=== PATIENT | male | born 1985 | race Caucasian/White ===

== ENCOUNTER 2017-10-31 10:45 | Inpatient (IN) | payer OTHER ==
[~2017-10-31] VITALS: Ht 177.8 cm; Wt 90.6 kg
[2017-10-31 12:30] LABS: Calcium, Ionized (POC) 1.17 mmol/L (1.10-1.46); Chloride (POC) 98 mmol/L (98-108); Creatinine (POC) 0.9 mg/dL (0.8-1.3); Glucose (ISTAT POC) 99 mg/dL (70-99); Hemoglobin (POC) 12.6 g/dL (13.5-17.5); Potassium (POC) 4.1 mmol/L (3.5-5.5); Sodium (POC) 137 mmol/L (135-148); Total CO2 (POC) 27 mmol/L (21-32)
[2017-10-31] MEDS ORDERED: IBUP800 PO (16:02)
[2017-10-31] MEDS ORDERED: ACET500 PO (16:03)
[2017-11-01 04:54] LABS: BASOPHILS ABSOLUTE AUTO 0.02 K/mm3 (0.00-0.23); BASOPHILS PERCENT AUTO 0 % (0-2); EOSINOPHILS ABSOLUTE AUTO 0.13 K/mm3 (0.00-0.68); EOSINOPHILS PERCENT AUTO 1 % (0-6); Hematocrit 37.4 % (37.0-53.0); Hemoglobin 12.6 g/dL (13.5-17.5); IMMATURE GRAN ABSOLUTE AUTO 0.04 K/mm3 (0.00-0.10); IMMATURE GRAN PERCENT AUTO 0 % (0-1); LYMPHOCYTES ABSOLUTE AUTO 2.08 K/mm3 (0.84-5.20); LYMPHOCYTES PERCENT AUTO 22 % (21-46); MONOCYTES PERCENT AUTO 8 % (4-13); Mean Corpuscular HGB 30.1 pg (26.0-34.0); Mean Corpuscular HGB Conc 33.7 g/dL (31.5-36.5); Mean Corpuscular Volume 89 fL (80-100); Mean Platelet Volume 8.6 fL (9.1-12.4); NEUTROPHILS ABSOLUTE AUTO 6.57 K/mm3 (1.96-9.15); NEUTROPHILS PERCENT AUTO 68 % (41-73); Platelet Count 191 K/mm3 (150-400); RDW Coefficient Variation 12.8 % (11.7-14.2); RDW Standard Deviation 41.4 fL (35.1-46.3); Red Blood Cell Count 4.19 M/mm3 (4.30-5.90); White Blood Cell Count 9.64 K/mm3 (4.00-11.30)
[2017-11-03] MEDS ORDERED: DOCU100 PO (10:34)
[2017-11-03] MEDS ORDERED: Percocet 10-321 EACH PO (10:35)
== END 2017-11-03 14:17 | disposition home health service (06) | DRG 536 ==
LOC: ER 10:45 → SURS 10:46 → ER 15:06 → SURS 15:06
PROVIDERS: Emergency Medicine; Orthopaedic Surgery
PROC: 3E0234Z Introduction of Serum, Toxoid and Vaccine into Muscle, Percutaneous Approach (ICD-10-PCS; principal; 2017-10-31)
DX: S32.592A Other specified fracture of left pubis, initial encounter for closed fracture (principal); S32.10XA Unspecified fracture of sacrum, initial encounter for closed fracture; M40.209 Unspecified kyphosis, site unspecified; D64.9 Anemia, unspecified; S52.122A Displaced fracture of head of left radius, initial encounter for closed fracture; G89.29 Other chronic pain; M54.5 Low back pain; R03.0 Elevated blood-pressure reading, without diagnosis of hypertension; S32.591A Other specified fracture of right pubis, initial encounter for closed fracture; Z23 Encounter for immunization; W13.2XXA Fall from, out of or through roof, initial encounter
CPT/HCPCS: 36415; 72100; 72193; 73080; 80047; 85014; 85025; 96374; 96375; 96376; 97116; 97163; 97530; 99285; G0378; G8978; G8979; J1170; J1885; J2405; J7030; Q9967

== ENCOUNTER → 2022-06-06 | Outpatient (CLI) | payer OTHER ==
[~2022-06-06] MED LIST: ACET500 PO; DOCU100 PO; IBUP800 PO; Percocet 10-321 EACH PO
== END | disposition home or self-care (01) ==
LOC: LAB 11:44 → LAB SHORT 11:44
DX: L08.9 Local infection of the skin and subcutaneous tissue, unspecified (principal)
CPT/HCPCS: 87070; 87147; 87205